=== PATIENT | female | born 1995 | race African-American/Black ===

== ENCOUNTER → 2016-07-13 | Outpatient (REF) | payer OTHER ==
[~2016-07-13] MED LIST: CEFD1CAP8 PO
== END ==
LOC: M SFHCLERA 17:02
PROVIDERS: ATTEND Physician Assistant
DX: R10.2 Pelvic and perineal pain (principal)

== ENCOUNTER 2016-07-14 16:03 | Emergency (ER) | payer OTHER ==
[~2016-07-14] VITALS: Ht 152.4 cm; Wt 70.3 kg
[2016-07-14] MEDS ORDERED: CEFD1CAP8 PO (16:11)
[2016-07-14 16:58] LABS: BASO % 0.4 % (0.0-1.0); EOS # 0.2 K/mm3 (0.0-0.50); EOS % 2.9 % (0.0-3.0); LARGE UNSTAINED CELL # 0.2 K/mm3 (0.0-0.4); LARGE UNSTAINED CELL % 2.5 % (0.0-4.0); LYMPH # 3.1 K/mm3 (1.5-6.5); LYMPH % 39.3 % (24.0-44.0); MEAN CORPUSCULAR HEMOGLOBIN 29.9 pg (27.0-33.0); MEAN CORPUSCULAR HGB CONC 32.9 g/dl (32.0-36.5); MEAN CORPUSCULAR VOLUME 90.9 fl (80.0-96.0); MONO # 0.4 K/mm3 (0.0-0.8); MONO % 4.5 % (0.0-5.0); NEUTROPHILS # 3.9 K/mm3 (1.8-7.7); NEUTROPHILS % 50.4 % (36.0-66.0); PLATELET COUNT, AUTOMATED 252 k/mm3 (150-450); WHITE BLOOD COUNT 7.8 K/mm3 (4.0-10.0)
[2016-07-14 17:00] LABS: CONTROL LINE UCG INT CTR LINE PRESENT
[2016-07-14 17:38] LABS: ANION GAP 9 MEQ/L (8-16); BLOOD UREA NITROGEN 8 MG/DL (7-18); CALCIUM LEVEL 8.7 MG/DL (8.5-10.1); CARBON DIOXIDE LEVEL 27 MEQ/L (21-32); CHLORIDE LEVEL 106 MEQ/L (98-107); CREATININE FOR GFR 0.62 MG/DL (0.55-1.02); GLOMERULAR FILTRATION RATE > 60.0 (>60); GLUCOSE, FASTING 90 MG/DL (70-105); HCG, SERUM QUANTITATIVE 48462 MIU/ML; POTASSIUM SERUM 3.8 MEQ/L (3.5-5.1); SODIUM LEVEL 142 MEQ/L (136-145)
--- NOTE | 2016-07-14 18:00 | REPUSA ---
Clinical history: Pain. Findings: Real-time transabdominal ultrasound images of the pelvis were obtained. There is a intraute rine gestational sac noted. The crown rump length measures 0.8 cm. heart rate measures 128 bpm. There is no evidence of a subchorionic hemorrhage. An anteverted uterus is noted, measuring 10.2 x 5 .1 x 7.0 cm. The uterus demonstrates normal echotexture and echogenicity. The endometrial stripe max sures 3 mm and is within normal limits. The right ovary measures 3.3 x 2.4 x 1.9 cm. The left ovar y measures 3.8 x 2.4 x 2.7 cm. No adnexal masses are seen. Color Doppler flow is seen within both o varies. There is no evidence of free fluid. Impression: Single live intrauterine measuring 6 weeks 6 days, with heart rate of 128 bpm. No other gross abnormalities appreciated.
[2016-07-14 18:54] VITALS: BP 105/66
== END 2016-07-14 18:58 | disposition home or self-care (01) ==
LOC: M ED 16:53
DX: O26.891 Other specified pregnancy related conditions, first trimester (principal); R10.9 Unspecified abdominal pain; Z79.2 Long term (current) use of antibiotics; Z88.2 Allergy status to sulfonamides; Z3A.01 Less than 8 weeks gestation of pregnancy